=== PATIENT | female | born 2000 | race Caucasian/White ===

== ENCOUNTER → 2021-03-09 | Outpatient (CLI) | payer BC ==
[2021-03-09 10:35] LABS: BUN/CREATININE RATIO 15 (0-10)
== END ==
LOC: LAB 09:26
PROVIDERS: Internal Medicine
DX: D89.89 Other specified disorders involving the immune mechanism, not elsewhere classified (principal); R76.8 Other specified abnormal immunological findings in serum; M25.50 Pain in unspecified joint; Z87.898 Personal history of other specified conditions; M79.10 Myalgia, unspecified site; E53.8 Deficiency of other specified B group vitamins
CPT/HCPCS: 36415; 80053; 82550; 82607; 82728; 82746